=== PATIENT | female | born 1980 | race Caucasian/White ===

== ENCOUNTER 2017-08-21 09:22 | Emergency (ER) | payer OTHER, MEDICAID ==
[2017-08-21] MEDS ORDERED: PENICILLIN V POTASSIUM 500 MG TABLET PO ONE (09:45)
[2017-08-21] MEDS ORDERED: IBUPROFEN 800 MG TABLET PO ONE (09:45)
--- NOTE | 2017-08-21 09:47 | ER Document Report ---
HPI - HPI Patient complains to provider of: swelling and pain tooth Onset: Other - 2 days Quality of pain: Achy Pain Level: 1 Context: 36 yo female with swelling left lower jaw, started as toothache. no fever. Associated Symptoms: None Exacerbated by: Denies Relieved by: Denies - ROS ROS below otherwise negative: Yes Systems Reviewed and Negative: Yes All other systems reviewed and negative Past Medical History - General Information source: Patient - Social History Smoking Status: Unknown if Ever Smoked Frequency of alcohol use: None Drug Abuse: None Lives with: Family Family History: Reviewed & Not Pertinent - Medical History Medical History: Negative Surgical Hx: Negative Vertical Provider Document - CONSTITUTIONAL Agree With Documented VS: Yes Exam Limitations: No Limitations General Appearance: No Apparent Distress - INFECTION CONTROL TRAVEL OUTSIDE OF THE [place] IN LAST 30 DAYS: No - HEENT HEENT: Normocephalic Notes: dental decay with adjacent gingiva/abscess lower left 2nd bicuspid - NECK Neck: Supple. negative: Lymphadenopathy-Left, Lymphadenopathy-Right - RESPIRATORY Respiratory: Breath Sounds Normal, No Respiratory Distress - CARDIOVASCULAR Cardiovascular: Regular Rate, Regular Rhythm - NEURO Level of Consciousness: Awake - DERM Integumentary: Warm, Dry Course - Vital Signs Vital signs: Temp Pulse Resp BP Pulse Ox 98.1 F 91 18 144/92 H 100 08/21/17 09:30 08/21/17 09:30 08/21/17 09:30 08/21/17 09:30 08/21/17 09:30 Discharge - Discharge Clinical Impression: Dental abscess Condition: Good Disposition: HOME, SELF-CARE Instructions: Dentist, Dental Infection or Abscess ([facility]), Penicillin V K ([facility]) Additional Instructions: warm compress penicillin four times per day motrin tylenol to er if worsens see dentist Prescriptions: Ibuprofen [Motrin 800 mg Tablet] 800 mg PO Q8HP PRN #30 tablet PRN Reason: Penicillin V Potassium [Penicillin Vk 500 mg Tablet] 500 mg PO QID #40 tablet Referrals: AUSTIN ENGLE FNP-C [Primary Care Provider] - Follow up as needed
[2017-08-21 10:12] VITALS: BP 145/113
== END 2017-08-21 10:12 | disposition home or self-care (01) ==
LOC: ER 09:22
DX: K04.7 Periapical abscess without sinus (principal); K02.9 Dental caries, unspecified; K08.89 Other specified disorders of teeth and supporting structures
CPT/HCPCS: 99283